=== PATIENT | female | born 1965 | race Caucasian/White ===

== ENCOUNTER → 2018-11-15 | Outpatient (CLI) | payer OTHER ==
[2018-11-15 09:11] LABS: Basophils # (auto) 0 uL; Eosinophils # (auto) 0.4 uL; Eosinophils % (auto) 8.5 % (0.0-7.0); Hematocrit 40.9 % (36.0-46.0); Hemoglobin 13.7 g/dL (12.2-16.2); Lymphocytes # (auto) 0.9 uL; Lymphocytes % (auto) 18.1 % (10.0-50.0); Mean Corpuscular Hemoglobin 28.4 pg (28.0-32.0); Mean Corpuscular Hgb Conc. 33.5 g/dL (32.0-36.0); Mean Corpuscular Volume 84.7 fL (80.0-100.0); Monocytes # (auto) 0.4 uL; Monocytes % (auto) 8.1 % (0.0-12.0); Neutrophils # (auto) 3.1 uL; Neutrophils % (auto) 64.3 % (37.0-80.0); Nucleated Red Blood Cells % 0.1 %; Platelet Count (auto) 294 10^3/uL (140-450); Red Blood Cells 4.83 10^6/uL (4.0-5.20); Red Cell Distribution Width 14.6 % (11.8-14.3); White Blood Cell 4.8 10^3/uL (4.4-10.8)
[2018-11-15 09:52] LABS: Potassium 3.7 mmol/L (3.5-5.1)
[2018-11-15 10:23] LABS: Albumin 3.5 g/dL (3.4-5.0); BUN/Creatinine Ratio 15.4; Bilirubin, Total 0.6 mg/dL (0.2-1.0); Calcium 8.9 mg/dL (8.5-10.1); Total Protein 7.4 g/dL (6.4-8.2)
[2018-11-15 14:41] LABS: Urine Bacteria MOD /hpf (None Seen); Urine Blood Negative /uL (Negative); Urine Hyaline Cast MOD /lpf (0 - 2); Urine Mucus FEW (None Seen); Urine Specific Gravity 1.027 (1.001-1.035); Urine WBC 26 /hpf (0 - 5)
== END | disposition home or self-care (01) ==
LOC: LAB 08:03
PROVIDERS: ATTEND Family Medicine
DX: E78.5 Hyperlipidemia, unspecified (principal); F33.9 Major depressive disorder, recurrent, unspecified; I10 Essential (primary) hypertension; E66.9 Obesity, unspecified; Z86.39 Personal history of other endocrine, nutritional and metabolic disease
CPT/HCPCS: 36415; 80053; 80061; 81001; 82306; 82607; 83036; 84443; 85025

== ENCOUNTER → 2019-03-02 | Outpatient (CLI) | payer OTHER | END | disposition home or self-care (01) | LOC: LAB 07:20 | PROVIDERS: ATTEND Family Medicine | DX: R94.6 Abnormal results of thyroid function studies (principal) | CPT/HCPCS: 36415; 84403; 84443; 84480 ==

== ENCOUNTER 2019-04-19 09:33 | Emergency (ER) | payer SELFPAY ==
[~2019-04-19] VITALS: Ht 172.7 cm; Wt 100.7 kg
[2019-04-19 10:31] LABS: Basophils # (auto) 0.1 uL; Basophils % (auto) 0.8 % (0.0-2.0); Eosinophils # (auto) 0.3 uL; Eosinophils % (auto) 4.2 % (0.0-7.0); Hematocrit 45.9 % (36.0-46.0); Hemoglobin 15.4 g/dL (12.2-16.2); Lymphocytes # (auto) 1.2 uL; Lymphocytes % (auto) 18.6 % (10.0-50.0); Mean Corpuscular Hemoglobin 28.6 pg (28.0-32.0); Mean Corpuscular Hgb Conc. 33.5 g/dL (32.0-36.0); Mean Corpuscular Volume 85.3 fL (80.0-100.0); Monocytes # (auto) 0.4 uL; Monocytes % (auto) 6.2 % (0.0-12.0); Neutrophils # (auto) 4.7 uL; Neutrophils % (auto) 70.2 % (37.0-80.0); Nucleated Red Blood Cells % 0.1 %; Platelet Count (auto) 340 10^3/uL (140-450); Red Blood Cells 5.39 10^6/uL (4.0-5.20); Red Cell Distribution Width 14.1 % (11.8-14.3); White Blood Cell 6.7 10^3/uL (4.4-10.8)
[2019-04-19 10:47] LABS: Albumin 4.3 g/dL (3.4-5.0); Calcium 9.5 mg/dL (8.5-10.1); Potassium 4.4 mmol/L (3.5-5.1)
[2019-04-19 10:50] LABS: Bilirubin, Total 0.7 mg/dL (0.2-1.0); Total Protein 8.1 g/dL (6.4-8.2)
[2019-04-19 12:46] LABS: Urine Bacteria NONE SEEN /hpf (None Seen); Urine Blood Negative /uL (Negative); Urine Mucus FEW (None Seen); Urine WBC 5 /hpf (0 - 5)
[2019-04-19 12:56] VITALS: BP 134/74
== END 2019-04-19 14:20 | disposition home or self-care (01) ==
LOC: ER 09:33
DX: S00.83XA Contusion of other part of head, initial encounter (principal); R55 Syncope and collapse; R00.2 Palpitations; N39.0 Urinary tract infection, site not specified; I12.9 Hypertensive chronic kidney disease with stage 1 through stage 4 chronic kidney disease, or unspecified chronic kidney disease; N18.3 Chronic kidney disease, stage 3 (moderate); E78.5 Hyperlipidemia, unspecified; Z90.49 Acquired absence of other specified parts of digestive tract; Z98.51 Tubal ligation status; X58.XXXA Exposure to other specified factors, initial encounter; Y93.89 Activity, other specified; Y99.8 Other external cause status; Y92.89 Other specified places as the place of occurrence of the external cause
CPT/HCPCS: 36415; 70486; 71046; 80053; 81001; 84443; 84484; 85025; 85379

== ENCOUNTER → 2019-05-31 | Outpatient (CLI) | payer OTHER | END | disposition home or self-care (01) | LOC: LAB 15:00 | PROVIDERS: ATTEND Obstetrics & Gynecology | DX: N84.1 Polyp of cervix uteri (principal) ==

== ENCOUNTER → 2019-08-31 | Outpatient (CLI) | payer OTHER | END | disposition home or self-care (01) | LOC: XYW 09:36 | PROVIDERS: ATTEND Internal Medicine | DX: R07.9 Chest pain, unspecified (principal) | CPT/HCPCS: 93306 ==

== ENCOUNTER → 2019-09-21 | Outpatient (CLI) | payer OTHER ==
[~2019-09-21] VITALS: Ht 172.7 cm; Wt 93.9 kg
[~2019-09-21] MED LIST: ADENOSINE 79 MG in GIVE UN-DILUTED 0 ML IV STA
== END | disposition home or self-care (01) ==
LOC: XY 07:06
PROVIDERS: ATTEND Internal Medicine
DX: R07.9 Chest pain, unspecified (principal); R55 Syncope and collapse; R00.2 Palpitations
CPT/HCPCS: 78452; 93017; A9500; J0153

== ENCOUNTER → 2019-11-27 | Outpatient (CLI) | payer OTHER ==
[2019-11-27 08:14] LABS: Basophils # (auto) 0 10 ^3/uL (0-0.2); Basophils % (auto) 1.2 % (0.0-2.0); Eosinophils # (auto) 0.2 10 ^3/uL (0-0.8); Hematocrit 43.6 % (36.0-46.0); Hemoglobin 14.3 g/dL (12.2-16.2); Lymphocytes # (auto) 0.9 10 ^3/uL (0.4-5.4); Lymphocytes % (auto) 23.9 % (10.0-50.0); Mean Corpuscular Hgb Conc. 32.8 g/dL (32.0-36.0); Mean Corpuscular Volume 88.5 fL (80.0-100.0); Monocytes # (auto) 0.3 10 ^3/uL (0-1.3); Monocytes % (auto) 8.2 % (0.0-12.0); Neutrophils # (auto) 2.4 10 ^3/uL (1.6-8.6); Neutrophils % (auto) 61.7 % (37.0-80.0); Platelet Count (auto) 295 10^3/uL (140-450); Red Blood Cells 4.92 10^6/uL (4.0-5.20); Red Cell Distribution Width 14.6 % (11.8-14.3)
[2019-11-27 08:24] LABS: Urine Bacteria NONE SEEN /hpf (None Seen); Urine Blood Negative /uL (Negative); Urine Hyaline Cast MANY /lpf (0 - 2); Urine Mucus FEW (None Seen); Urine Specific Gravity 1.028 (1.001-1.035); Urine WBC 7 /hpf (0 - 5)
[2019-11-27 11:09] LABS: BUN/Creatinine Ratio 15.7; Bilirubin, Total 0.6 mg/dL (0.2-1.0); Calcium 8.9 mg/dL (8.5-10.1); Potassium 4.2 mmol/L (3.5-5.1); Total Protein 7.7 g/dL (6.4-8.2)
== END | disposition home or self-care (01) ==
LOC: LAB 07:54
PROVIDERS: ATTEND Family Medicine
DX: I10 Essential (primary) hypertension (principal); E78.2 Mixed hyperlipidemia; R79.89 Other specified abnormal findings of blood chemistry; E55.9 Vitamin D deficiency, unspecified; R32 Unspecified urinary incontinence; E66.09 Other obesity due to excess calories; Z87.898 Personal history of other specified conditions; Z82.49 Family history of ischemic heart disease and other diseases of the circulatory system
CPT/HCPCS: 36415; 80053; 80061; 81001; 82306; 84443; 85025

== ENCOUNTER → 2019-12-21 | Outpatient (CLI) | payer OTHER ==
[~2019-12-21] VITALS: Ht 172.7 cm; Wt 93.1 kg
[~2019-12-21] MED LIST changes: -ADENOSINE 79 MG in GIVE UN-DILUTED 0 ML IV STA; +ALPR0.25 PO; +AML5T PO; +ATOR1TAB PO; +BUPR-40 PO; +HYDR-4924 PO; +OXYB10TA14 PO
[2019-12-21 08:55] LABS: Basophils # (auto) 0 10 ^3/uL (0-0.2); Basophils % (auto) 0.8 % (0.0-2.0); Eosinophils # (auto) 0.2 10 ^3/uL (0-0.8); Eosinophils % (auto) 4.9 % (0.0-7.0); Hematocrit 40.6 % (36.0-46.0); Hemoglobin 13.5 g/dL (12.2-16.2); Mean Corpuscular Hemoglobin 29.3 pg (28.0-32.0); Mean Corpuscular Hgb Conc. 33.2 g/dL (32.0-36.0); Monocytes # (auto) 0.4 10 ^3/uL (0-1.3); Monocytes % (auto) 7.8 % (0.0-12.0); Neutrophils % (auto) 64.5 % (37.0-80.0); Nucleated Red Blood Cells % 0.1 %; Platelet Count (auto) 291 10^3/uL (140-450); Red Blood Cells 4.62 10^6/uL (4.0-5.20); Red Cell Distribution Width 14.8 % (11.8-14.3); White Blood Cell 4.7 10^3/uL (4.4-10.8)
[2019-12-21 09:10] LABS: INR 1.02 (0.9-1.15); Partial Thromboplastin Time 25.1 sec (23.0-31.2)
[2019-12-21 09:13] LABS: Albumin 3.7 g/dL (3.4-5.0); Calcium 8.8 mg/dL (8.5-10.1)
[2019-12-21 09:16] LABS: BUN/Creatinine Ratio 18.8; Bilirubin, Total 0.4 mg/dL (0.2-1.0); Total Protein 7.2 g/dL (6.4-8.2)
== END | disposition home or self-care (01) ==
LOC: LAB 08:45
PROVIDERS: ATTEND Internal Medicine
DX: Z01.818 Encounter for other preprocedural examination (principal)
CPT/HCPCS: 36415; 80053; 85025; 85610; 85730

== ENCOUNTER 2019-12-27 06:56 | Inpatient (IN) | payer OTHER ==
[~2019-12-27] VITALS: Ht 172.7 cm; Wt 98.6 kg
[2019-12-27] MEDS ORDERED: ANGIOMAX 250 MG VIAL IV ONE (09:04)
[2019-12-27] MEDS ORDERED: SODIUM CHL 0.9% 50 ML ONE (09:04)
[2019-12-27] MEDS ORDERED: MIDAZOLAM HCL 1MG/1ML-2 ML VIAL ONE (09:04)
[2019-12-27] MEDS ORDERED: fentaNYL CITRATE 100 MCG/2 ML VL ONE (09:04)
[2019-12-27] MEDS ORDERED: NITROGLYCERIN 5MG/ML 10ML VIAL IV ONE (09:05)
[2019-12-27] MEDS ORDERED: HEPARIN SODIUM (PORCINE) 5000 UNITS/ML 1ML VIAL ONE (09:05)
[2019-12-27] MEDS ORDERED: VERAPAMIL 2.5MG/ML INJ 2ML VIAL IV ONE (09:05)
[2019-12-27] MEDS ORDERED: LIDOCAINE 2%HCL (LOCAL ANESTH.) INJ 20ML MDV ONE (09:11)
[2019-12-27] MEDS ORDERED: ASPirin 325 MG TAB ONE (09:50)
[2019-12-27] MEDS ORDERED: TICAGRELOR 90 MG TAB ONE (09:50)
--- NOTE | 2019-12-27 10:00 | NUR ---
Received pt. in [employer] post-op awake and alert with even and unlabored respirations in supine position. States feel "fine" with mild numbness and tingling to RIGHT fingers. RT wrist VASC band in place with no oozing or bleeding noted at visible puncture site. RT radial pulse is palpable. Moves all extremities freely, HOB elevated 30 degrees for comfort. IV infusing well into LEFT AC with Angiomax infusing IVPB via infusion pump; site benign. NAD noted. Instructed re: procedure outcome and plan of care; pt. verbalized understanding and is compliant.
[2019-12-27] MEDS ORDERED: NITROGLYCERIN 0.4 MG SL TAB SL PRN (10:15)
[2019-12-27] MEDS ORDERED: SODIUM CHLORIDE 0.9% 1,000 ML IV SCH (10:15)
[2019-12-27] MEDS ORDERED: MORPHINE SULF INJ 2 MG/ML SYRINGE 1ML IV PRN (10:15)
--- NOTE | 2019-12-27 10:17 | NUR ---
RT wrist VASC band intact with no noted bleeding at puncture site.
--- NOTE | 2019-12-27 10:31 | NUR ---
Continues to deny discomfort, watching TV at present, RIGHT wrist VASC band site unchanged. IV NS infusing @ 200 ml/hr; site benign.
--- NOTE | 2019-12-27 10:43 | NUR ---
SBAR report given to XIOMARA Calhoun.
--- NOTE | 2019-12-27 10:56 | NUR ---
Up to bathroom to void.
--- NOTE | 2019-12-27 11:02 | NUR ---
Pt. transferred to room 297-A via w/c in stable condition. RIGHT wrist VASC band in place and unchanged, states RT hand numbness and tingling is gone. NAD noted. Pt. endorsed to XIOMARA Calhoun.
--- NOTE | 2019-12-27 11:05 | NUR ---
Pt. received from [employer] [place] in stable condition. She is alert and oriented times four at this time. Vasc Band site is intact and she denies any chest pain or SOB.
--- NOTE | 2019-12-27 12:00 | NUR ---
Pt.'s Vasc Band was inserted syringe and 2mls of air were removed. No bleeding or bruising noted to site. Will reassess in 10 minutes.
--- NOTE | 2019-12-27 12:25 | NUR ---
Pt.'s Vasc Band was inserted syringe and 2mls of air were removed. No bleeding or bruising noted to site. Pt. states feeling well and denies SOB or Chest Pain. Will reassess in 15 minutes.
--- NOTE | 2019-12-27 12:40 | NUR ---
Pt.'s Vasc Band was inserted syringe and 2mls of air were removed. No bleeding or bruising noted to site. Will reassess in 15 minute.
--- NOTE | 2019-12-27 12:50 | NUR ---
Pt.'s Vasc Band was inserted syringe and no air came out. Will reassess in 15 minutes and remove Vasc Band if no air comes out.
--- NOTE | 2019-12-27 13:05 | NUR ---
Pt.'s Vasc Band was accessed with syringe again and no air came out. Vasc Band was removed and gauze was applied over punture site, tegaderm over gauze. Pt. tolerated well. no bleeding noted.
[2019-12-27] MEDS ORDERED: BUPR150T6 PO (13:07)
[2019-12-27] MEDS ORDERED: BUPR300T28 PO (13:07)
[2019-12-27] MEDS ORDERED: CHOL100029 PO (13:11)
[2019-12-27] MEDS ORDERED: ASPI-498 PO (13:11)
[2019-12-27 13:57] VITALS: BP 144/71
[2019-12-27] MEDS: SODIUM CHLOR 0.9% PF (SALINE LOCK) 10ML VIAL/SYR IV SCH ×2 (14:00→22:19)
[2019-12-27] MEDS ORDERED: ATOR80TA (16:32)
[2019-12-27] MEDS: IBUPROFEN 600 MG TAB PO PRN (16:48)
[2019-12-27 17:43] VITALS: BP 156/88
--- NOTE | 2019-12-27 19:35 | NUR ---
Opening Shift Note Assumed care of patient, awake and alert. No S/S of distress/SOB or pain. Safety measures in place, bed in lowest locked position, bed rails raised x2, call light within reach. Instructed on POC and to call for assist PRN, will continue to monitor for changes Q1hr and PRN.
[2019-12-27 22:00] VITALS: BP 142/75
[2019-12-27] MEDS: PANTOPRAZOLE 40 MG TAB PO SCH (22:19)
[2019-12-27] MEDS: TICAGRELOR 90 MG TAB PO SCH (22:19)
[2019-12-28 04:58] VITALS: BP 155/91
[2019-12-28] MEDS: SODIUM CHLOR 0.9% PF (SALINE LOCK) 10ML VIAL/SYR IV SCH ×2 (05:41→14:00)
[2019-12-28] MEDS: IBUPROFEN 600 MG TAB PO PRN (06:00)
[2019-12-28 09:00] VITALS: BP 136/81
[2019-12-28] MEDS: PANTOPRAZOLE 40 MG TAB PO SCH (09:11)
[2019-12-28] MEDS: TICAGRELOR 90 MG TAB PO SCH (09:11)
[2019-12-28] MEDS ORDERED: ASPirin-EC 81 mg tab PO SCH (10:00)
[2019-12-28 13:00] VITALS: BP 138/76
--- NOTE | 2019-12-28 16:37 | NUR ---
Discharge Went over discharge paperwork with patient; answered all questions. Follow up doctor appt made with Dr. Arce. Prescription was taken to [facility]. They said they are out of the Brilinta and they will deliver it to her home tomorrow. They will also deliver the aspirin as the patient already has aspirin at home to take. Removed IV intact, no problems. Removed ID band. Removed hall monitor and sent to ICU per hospital protocol. Patient waiting for ride from family and will leave with all personal belongings in private vehicle.
== END 2019-12-28 16:55 | disposition home or self-care (01) | DRG 247 ==
LOC: CATH 06:56 → TELE-WESTW 11:47
PROVIDERS: ADMIT Internal Medicine; ATTEND Internal Medicine
PROC: 027034Z Dilation of Coronary Artery, One Artery with Drug-eluting Intraluminal Device, Percutaneous Approach (ICD-10-PCS; principal; 2019-12-27)
PROC: 4A023N7 Measurement of Cardiac Sampling and Pressure, Left Heart, Percutaneous Approach (ICD-10-PCS; 2019-12-27)
PROC: B211YZZ Fluoroscopy of Multiple Coronary Arteries using Other Contrast (ICD-10-PCS; 2019-12-27)
PROC: B215YZZ Fluoroscopy of Left Heart using Other Contrast (ICD-10-PCS; 2019-12-27)
PROC: 4A033BC Measurement of Arterial Pressure, Coronary, Percutaneous Approach (ICD-10-PCS; 2019-12-27)
DX: I25.10 Atherosclerotic heart disease of native coronary artery without angina pectoris (principal); I10 Essential (primary) hypertension; E78.5 Hyperlipidemia, unspecified; E66.9 Obesity, unspecified; R55 Syncope and collapse; Z20.828 Contact with and (suspected) exposure to other viral communicable diseases; R00.2 Palpitations; I25.9 Chronic ischemic heart disease, unspecified; Z68.33 Body mass index [BMI] 33.0-33.9, adult; Z82.49 Family history of ischemic heart disease and other diseases of the circulatory system
CPT/HCPCS: 36415; 82565; 92928; 93458; 93571; 99152; C1874; C1887; G0378; J2250; J3490

== ENCOUNTER → 2020-01-11 | Outpatient (CLI) | payer OTHER ==
[~2020-01-11] MED LIST changes: +ASPI-498 PO; +ATOR80TA; -BUPR-40 PO; +BUPR150T6 PO; +BUPR300T28 PO; +CHOL100029 PO
== END | disposition home or self-care (01) ==
LOC: LAB 17:33
PROVIDERS: ATTEND Urology
DX: N39.0 Urinary tract infection, site not specified (principal)
CPT/HCPCS: 87086

== ENCOUNTER → 2020-04-12 | Outpatient (CLI) | payer OTHER ==
[2020-04-12 14:37] LABS: Basophils # (auto) 0 10 ^3/uL (0-0.2); Basophils % (auto) 0.8 % (0.0-2.0); Eosinophils # (auto) 0.3 10 ^3/uL (0-0.8); Eosinophils % (auto) 4.6 % (0.0-7.0); Hematocrit 40.2 % (36.0-46.0); Hemoglobin 13.6 g/dL (12.2-16.2); Lymphocytes # (auto) 1.1 10 ^3/uL (0.4-5.4); Lymphocytes % (auto) 18.2 % (10.0-50.0); Mean Corpuscular Hemoglobin 30.2 pg (28.0-32.0); Mean Corpuscular Hgb Conc. 33.9 g/dL (32.0-36.0); Monocytes # (auto) 0.5 10 ^3/uL (0-1.3); Monocytes % (auto) 9.1 % (0.0-12.0); Neutrophils # (auto) 3.9 10 ^3/uL (1.6-8.6); Neutrophils % (auto) 67.3 % (37.0-80.0); Nucleated Red Blood Cells % 0.1 %; Platelet Count (auto) 326 10^3/uL (140-450); Red Blood Cells 4.52 10^6/uL (4.0-5.20); Red Cell Distribution Width 13.7 % (11.8-14.3); White Blood Cell 5.8 10^3/uL (4.4-10.8)
== END | disposition home or self-care (01) ==
LOC: LAB 14:26
PROVIDERS: ATTEND Nurse Practitioner Acute Care
DX: I10 Essential (primary) hypertension (principal); I25.10 Atherosclerotic heart disease of native coronary artery without angina pectoris
CPT/HCPCS: 36415; 85025

== ENCOUNTER → 2020-11-05 | Outpatient (CLI) | payer OTHER ==
[~2020-11-05] MED LIST changes: +ATOR-47 PO; -ATOR1TAB PO; +BUPR150T18 PO; -BUPR150T6 PO
[2020-11-05 08:37] LABS: Basophils # (auto) 0 10 ^3/uL (0-0.2); Basophils % (auto) 0.6 % (0.0-2.0); Eosinophils # (auto) 0.3 10 ^3/uL (0-0.8); Eosinophils % (auto) 6.1 % (0.0-7.0); Hematocrit 40.2 % (36.0-46.0); Hemoglobin 13.5 g/dL (12.2-16.2); Lymphocytes # (auto) 1.2 10 ^3/uL (0.4-5.4); Lymphocytes % (auto) 22.5 % (10.0-50.0); Mean Corpuscular Hemoglobin 28.9 pg (28.0-32.0); Mean Corpuscular Hgb Conc. 33.4 g/dL (32.0-36.0); Mean Corpuscular Volume 86.3 fL (80.0-100.0); Monocytes # (auto) 0.4 10 ^3/uL (0-1.3); Monocytes % (auto) 8.2 % (0.0-12.0); Neutrophils # (auto) 3.3 10 ^3/uL (1.6-8.6); Neutrophils % (auto) 62.6 % (37.0-80.0); Red Blood Cells 4.66 10^6/uL (4.0-5.20); Red Cell Distribution Width 14.7 % (11.8-14.3); White Blood Cell 5.2 10^3/uL (4.4-10.8)
[2020-11-05 08:41] LABS: Urine Bacteria NONE SEEN /hpf (None Seen); Urine Blood Negative /uL (Negative); Urine Mucus FEW (None Seen); Urine WBC 10 /hpf (0 - 5)
[2020-11-05 08:56] LABS: Albumin 3.4 g/dL (3.4-5.0); Potassium 3.9 mmol/L (3.5-5.1)
[2020-11-05 09:03] LABS: BUN/Creatinine Ratio 19.2; Bilirubin, Total 0.5 mg/dL (0.2-1.0); Total Protein 7.2 g/dL (6.4-8.2)
== END | disposition home or self-care (01) ==
LOC: LAB 07:29
PROVIDERS: ATTEND Family Medicine
DX: I10 Essential (primary) hypertension (principal); E78.2 Mixed hyperlipidemia; I25.10 Atherosclerotic heart disease of native coronary artery without angina pectoris; M54.5 Low back pain; F33.9 Major depressive disorder, recurrent, unspecified; Z95.5 Presence of coronary angioplasty implant and graft
CPT/HCPCS: 36415; 80053; 80061; 81001; 82306; 82607; 84443; 85025

== ENCOUNTER 2021-03-03 10:06 | Inpatient (IN) | payer OTHER ==
[~2021-03-03] VITALS: Ht 167.6 cm; Wt 92.6 kg
[2021-03-03] MEDS ORDERED: SODIUM CHLORIDE 0.9% 500 ML IV ONE (10:30)
[2021-03-03 10:53] LABS: Basophils # (auto) 0 10 ^3/uL (0-0.2); Basophils % (auto) 0.7 % (0.0-2.0); Eosinophils # (auto) 0.1 10 ^3/uL (0-0.8); Eosinophils % (auto) 1.4 % (0.0-7.0); Hematocrit 25.8 % (36.0-46.0); Hemoglobin 8.6 g/dL (12.2-16.2); Lymphocytes # (auto) 1.6 10 ^3/uL (0.4-5.4); Lymphocytes % (auto) 24.9 % (10.0-50.0); Mean Corpuscular Hemoglobin 28.8 pg (28.0-32.0); Mean Corpuscular Hgb Conc. 33.4 g/dL (32.0-36.0); Mean Corpuscular Volume 86.5 fL (80.0-100.0); Monocytes # (auto) 0.3 10 ^3/uL (0-1.3); Monocytes % (auto) 4.4 % (0.0-12.0); Neutrophils # (auto) 4.5 10 ^3/uL (1.6-8.6); Neutrophils % (auto) 68.6 % (37.0-80.0); Nucleated Red Blood Cells % 0.1 %; Red Blood Cells 2.99 10^6/uL (4.0-5.20); Red Cell Distribution Width 13.8 % (11.8-14.3); White Blood Cell 6.6 10^3/uL (4.4-10.8)
[2021-03-03 11:33] LABS: Albumin 3.2 g/dL (3.4-5.0); Potassium 3.7 mmol/L (3.5-5.1)
[2021-03-03 11:46] LABS: BUN/Creatinine Ratio 42.2; Bilirubin, Total 0.3 mg/dL (0.2-1.0); Magnesium 2.8 mg/dL (1.6-2.6); Total Protein 6.3 g/dL (6.4-8.2)
[2021-03-03] MEDS ORDERED: MORPHINE SULFATE INJECTION 2 MG/ML SYRG IV PRN ×3 (16:30→21:45)
[2021-03-03] MEDS ORDERED: NITROGLYCERIN 0.4 MG SL TAB SL PRN ×2 (16:30→21:45)
[2021-03-03] MEDS ORDERED: LACTULOSE 20Gm/30ML SOLN PO PRN (17:15)
[2021-03-03 20:00] LABS: Urine Bacteria NONE SEEN /hpf (None Seen); Urine Blood Negative /uL (Negative); Urine Mucus FEW (None Seen); Urine Specific Gravity 1.024 (1.001-1.035); Urine WBC 13 /hpf (0 - 5)
[2021-03-03] MEDS ORDERED: hydrALAZINE HCL 20 MG/ML VL IV PRN (21:45)
[2021-03-03] MEDS ORDERED: DOCUSATE SOD 100 MG CAP PO PRN (21:45)
[2021-03-03] MEDS ORDERED: ONDANSETRON HCL 4 MG/2 ML VIAL IV PRN (21:45)
[2021-03-03] MEDS ORDERED: METOPROLOL SUCCINATE XL 50 MG TAB PO ONE (21:45)
[2021-03-03] MEDS ORDERED: LORazepam 0.5 MG TAB PO PRN (21:45)
[2021-03-03] MEDS ORDERED: ALUM & MAG HYDROX-SIMETH LIQ(MAALOX) 30 ML PO PRN (21:45)
[2021-03-03] MEDS ORDERED: hydrOXYzine HCL 10 MG TAB PO PRN (21:45)
[2021-03-03] MEDS ORDERED: HYDROcodone-ACET 5/325MG TAB PO PRN (21:45)
[2021-03-03] MEDS ORDERED: PANTOPRAZOLE 40 MG/10 ML VIAL INJ IV ONE (22:00)
[2021-03-03 23:38] LABS: Alcohol, Urine < 3.0 mg/dL (0-10); Amphetamine Screen, Urine NEGATIVE (NEGATIVE); Barbiturate Scree,Urine NEGATIVE (NEGATIVE); Benzodiazephine Screen, Urine NEGATIVE (NEGATIVE); Cannabinoid Screen, Urine NEGATIVE (NEGATIVE); Cocaine Screen, Urine NEGATIVE (NEGATIVE); Opiate Scree,Urine NEGATIVE (NEGATIVE); Phencyclidine Screen, Urine NEGATIVE (NEGATIVE)
[2021-03-03] MEDS: OXYBUTYNIN CHL 5 MG TAB PO SCH (23:52)
[2021-03-03] MEDS: ATORVASTATIN 20 MG TAB PO SCH (23:52)
[2021-03-04] VITALS (7 sets, daily range): BP systolic 114–155; BP diastolic 64–79
[2021-03-04] MEDS: SODIUM CHLORIDE 0.9% 1,000 ML IV SCH ×2 (00:02→11:20)
[2021-03-04] MEDS: buPROPion HCL 75 MG TAB PO SCH ×2 (07:00→19:00)
[2021-03-04 07:25] LABS: Basophils # (auto) 0 10 ^3/uL (0-0.2); Basophils % (auto) 0.7 % (0.0-2.0); Lymphocytes # (auto) 2.1 10 ^3/uL (0.4-5.4); Mean Corpuscular Hemoglobin 29.6 pg (28.0-32.0); Monocytes # (auto) 0.5 10 ^3/uL (0-1.3)
[2021-03-04 07:27] LABS: Eosinophils # (auto) 0.1 10 ^3/uL (0-0.8); Eosinophils % (auto) 0.7 % (0.0-7.0); Hematocrit 19.6 % (36.0-46.0); Lymphocytes % (auto) 29.2 % (10.0-50.0); Mean Corpuscular Hgb Conc. 33.8 g/dL (32.0-36.0); Mean Corpuscular Volume 87.4 fL (80.0-100.0); Monocytes % (auto) 6.4 % (0.0-12.0); Neutrophils # (auto) 4.6 10 ^3/uL (1.6-8.6); Nucleated Red Blood Cells % 0.2 %; Red Blood Cells 2.24 10^6/uL (4.0-5.20); Red Cell Distribution Width 13.8 % (11.8-14.3); White Blood Cell 7.2 10^3/uL (4.4-10.8)
[2021-03-04 07:34] LABS: Hemoglobin 6.6 g/dL (12.2-16.2)
[2021-03-04] MEDS: ACETAMINOPHEN 325 MG TAB PO PRN ×2 (07:45→14:02)
[2021-03-04 07:59] LABS: INR 1.1 (0.9-1.15); Partial Thromboplastin Time 20.9 sec (23.6-33.0)
[2021-03-04 08:19] LABS: Potassium 3.6 mmol/L (3.5-5.1)
[2021-03-04 08:29] LABS: BUN/Creatinine Ratio 39.5; Bilirubin, Total 0.4 mg/dL (0.2-1.0); Calcium 7.9 mg/dL (8.5-10.1); Magnesium 3.3 mg/dL (1.6-2.6); Phosphorus 2.8 mg/dL (2.5-4.90); Total Protein 5.7 g/dL (6.4-8.2); Uric Acid 5.3 mg/dL (2.6-6.0)
[2021-03-04] MEDS: cefTRIAXone 1GM/50ML D5W 50 ML IV SCH (09:23)
[2021-03-04] MEDS: PANTOPRAZOLE 40 MG/10 ML VIAL INJ IV SCH ×2 (09:24→22:18)
[2021-03-04] MEDS: OXYBUTYNIN CHL 5 MG TAB PO SCH ×2 (09:25→22:18)
[2021-03-04] MEDS ORDERED: SOLI5SUS PO (09:32)
[2021-03-04] MEDS ORDERED: TICA90TA PO (09:32)
[2021-03-04] MEDS ORDERED: METOPROLOL SUCCINATE XL 50 MG TAB PO SCH (10:00)
[2021-03-04 12:01] LABS: Hematocrit 18.7 % (36.0-46.0)
[2021-03-04 12:11] LABS: Hemoglobin 6.4 g/dL (12.2-16.2)
[2021-03-04] MEDS: ATORVASTATIN 20 MG TAB PO SCH (22:18)
[2021-03-04 22:26] LABS: Hematocrit 25.9 % (36.0-46.0); Hemoglobin 8.7 g/dL (12.2-16.2)
[2021-03-05 05:00] VITALS: BP 123/72
[2021-03-05] MEDS: SODIUM CHLORIDE 0.9% 1,000 ML IV SCH ×2 (05:42→13:27)
[2021-03-05] MEDS: buPROPion HCL 75 MG TAB PO SCH ×3 (06:34→18:35)
[2021-03-05 07:00] LABS: Basophils # (auto) 0 10 ^3/uL (0-0.2); Monocytes # (auto) 0.4 10 ^3/uL (0-1.3); White Blood Cell 5.9 10^3/uL (4.4-10.8)
[2021-03-05 07:03] LABS: Basophils % (auto) 0.7 % (0.0-2.0); Eosinophils # (auto) 0.2 10 ^3/uL (0-0.8); Eosinophils % (auto) 2.6 % (0.0-7.0); Hematocrit 23.2 % (36.0-46.0); Hemoglobin 8.1 g/dL (12.2-16.2); Lymphocytes # (auto) 1.6 10 ^3/uL (0.4-5.4); Lymphocytes % (auto) 26.5 % (10.0-50.0); Mean Corpuscular Hemoglobin 30.2 pg (28.0-32.0); Mean Corpuscular Hgb Conc. 34.8 g/dL (32.0-36.0); Mean Corpuscular Volume 86.9 fL (80.0-100.0); Monocytes % (auto) 6.7 % (0.0-12.0); Neutrophils # (auto) 3.7 10 ^3/uL (1.6-8.6); Neutrophils % (auto) 63.5 % (37.0-80.0); Nucleated Red Blood Cells % 0.1 %; Red Blood Cells 2.68 10^6/uL (4.0-5.20); Red Cell Distribution Width 14.4 % (11.8-14.3)
[2021-03-05 07:08] LABS: Potassium 3.6 mmol/L (3.5-5.1)
[2021-03-05 07:17] LABS: BUN/Creatinine Ratio 21.7; Calcium 7.8 mg/dL (8.5-10.1); Magnesium 3.2 mg/dL (1.6-2.6)
[2021-03-05] MEDS: cefTRIAXone 1GM/50ML D5W 50 ML IV SCH (08:49)
[2021-03-05] MEDS: ACETAMINOPHEN 325 MG TAB PO PRN ×3 (08:50→22:08)
[2021-03-05] MEDS: OXYBUTYNIN CHL 5 MG TAB PO SCH ×2 (08:50→22:02)
[2021-03-05] MEDS: PANTOPRAZOLE 40 MG/10 ML VIAL INJ IV SCH ×2 (08:50→22:03)
[2021-03-05 12:42] VITALS: BP 123/69
[2021-03-05 16:42] VITALS: BP 124/65
[2021-03-05 20:00] VITALS: BP 125/67
[2021-03-05 22:00] VITALS: BP 125/67
[2021-03-05] MEDS: ATORVASTATIN 20 MG TAB PO SCH (22:03)
[2021-03-05 23:48] LABS: Hematocrit 25.9 % (36.0-46.0); Hemoglobin 8.7 g/dL (12.2-16.2)
[2021-03-06] MEDS: SODIUM CHLORIDE 0.9% 1,000 ML IV SCH
[2021-03-06] MEDS ORDERED: dilTIAZem 25 MG/5 ML VIAL IV ONE (00:45)
[2021-03-06 05:00] VITALS: BP 95/60
[2021-03-06] MEDS: buPROPion HCL 75 MG TAB PO SCH (06:27)
[2021-03-06 06:31] LABS: Hemoglobin 8.1 g/dL (12.2-16.2)
[2021-03-06 06:34] LABS: Hematocrit 24.7 % (36.0-46.0)
[2021-03-06 06:49] LABS: BUN/Creatinine Ratio 12.5; Calcium 7.9 mg/dL (8.5-10.1); Potassium 3.5 mmol/L (3.5-5.1)
[2021-03-06 08:31] VITALS: BP 113/61
[2021-03-06] MEDS: ACETAMINOPHEN 325 MG TAB PO PRN (08:38)
[2021-03-06] MEDS: OXYBUTYNIN CHL 5 MG TAB PO SCH (08:38)
[2021-03-06] MEDS: PANTOPRAZOLE 40 MG/10 ML VIAL INJ IV SCH (08:38)
[2021-03-06 11:01] VITALS: BP 113/69
[2021-03-06] MEDS ORDERED: PANT40TA2 PO (14:39)
[2021-03-06 16:16] VITALS: BP 113/60
== END 2021-03-06 17:18 | disposition home or self-care (01) | DRG 812 ==
LOC: ER 10:06 → TELE 16:03 → TELE-WESTW 03-04 20:39
PROVIDERS: ADMIT Hospitalist; ATTEND Internal Medicine
PROC: 30233N1 Transfusion of Nonautologous Red Blood Cells into Peripheral Vein, Percutaneous Approach (ICD-10-PCS; principal; 2021-03-04)
DX: D64.9 Anemia, unspecified (principal); K59.00 Constipation, unspecified; E66.9 Obesity, unspecified; F32.9 Major depressive disorder, single episode, unspecified; N32.81 Overactive bladder; E78.5 Hyperlipidemia, unspecified; I25.10 Atherosclerotic heart disease of native coronary artery without angina pectoris; F32.A Depression, unspecified; R00.0 Tachycardia, unspecified; F41.9 Anxiety disorder, unspecified; Z20.822 Contact with and (suspected) exposure to COVID-19; I10 Essential (primary) hypertension; Z80.0 Family history of malignant neoplasm of digestive organs; Z82.49 Family history of ischemic heart disease and other diseases of the circulatory system; Z95.5 Presence of coronary angioplasty implant and graft; Z90.49 Acquired absence of other specified parts of digestive tract; Z98.51 Tubal ligation status; Z68.32 Body mass index [BMI] 32.0-32.9, adult
CPT/HCPCS: 36415; 71045; 74177; 76830; 76856; 80048; 80053; 80307; 81001; 82270; 82306; 83036; 83735; 83880; 84100; 84443; 84484; 84550; 85014; 85018; 85025; 85379; 85610; 85730; 86850; 86900; 86901; 86920; 87040; 87086; 87426; 93005; 96360; C9113; G0378; J0696

== ENCOUNTER → 2021-05-08 | Day surgery (SDC) | payer OTHER ==
[2021-05-06 10:34] LABS: Basophils # (auto) 0.1 10 ^3/uL (0-0.2); Basophils % (auto) 0.7 % (0.0-2.0); Eosinophils # (auto) 0.1 10 ^3/uL (0-0.8); Eosinophils % (auto) 1.9 % (0.0-7.0); Hematocrit 41.9 % (36.0-46.0); Hemoglobin 13.8 g/dL (12.2-16.2); Lymphocytes # (auto) 1.2 10 ^3/uL (0.4-5.4); Lymphocytes % (auto) 15.7 % (10.0-50.0); Mean Corpuscular Hgb Conc. 32.9 g/dL (32.0-36.0); Mean Corpuscular Volume 88.2 fL (80.0-100.0); Monocytes # (auto) 0.6 10 ^3/uL (0-1.3); Monocytes % (auto) 8.1 % (0.0-12.0); Neutrophils # (auto) 5.7 10 ^3/uL (1.6-8.6); Neutrophils % (auto) 73.6 % (37.0-80.0); Red Blood Cells 4.75 10^6/uL (4.0-5.20); Red Cell Distribution Width 15.4 % (11.8-14.3); White Blood Cell 7.7 10^3/uL (4.4-10.8)
[2021-05-06 12:12] LABS: Potassium 4.7 mmol/L (3.5-5.1)
[2021-05-06 12:20] LABS: Albumin 3.8 g/dL (3.4-5.0); BUN/Creatinine Ratio 26.7; Bilirubin, Total 0.7 mg/dL (0.2-1.0); Calcium 9.4 mg/dL (8.5-10.1); Total Protein 7.4 g/dL (6.4-8.2)
[~2021-05-08] VITALS: Ht 172.7 cm; Wt 88.0 kg
[~2021-05-08] MED LIST changes: -ASPI-498 PO; -ATOR80TA; -BUPR150T18 PO; -BUPR300T28 PO; +FERR-7 PO; +FOLI1TAB6 PO; -HYDR-4924 PO; +LIDOCAINE VISCOUS 2% 15ML UD ONE; -OXYB10TA14 PO; +PANT40TA2 PO; +SODIUM CHLORIDE LOCK 10 ML ONE; +SOLI5SUS PO; +diphenhdrAMINE HCL 50 MG/1 ML VL ONE
[2021-05-08] MEDS: MIDAZOLAM HCL 5 MG/ML-1ML VIAL ONE ×4 (09:49→10:06)
[2021-05-08] MEDS: fentaNYL CITRATE 100 MCG/2 ML VL ONE ×4 (09:49→10:06)
[2021-05-08 11:00] VITALS: BP 114/67
== END | disposition home or self-care (01) ==
LOC: GI 09:05
PROVIDERS: ATTEND Internal Medicine Gastroenterology
DX: D64.9 Anemia, unspecified (principal); K64.8 Other hemorrhoids; K29.50 Unspecified chronic gastritis without bleeding; K44.9 Diaphragmatic hernia without obstruction or gangrene; K31.5 Obstruction of duodenum; I10 Essential (primary) hypertension; E78.5 Hyperlipidemia, unspecified; F41.9 Anxiety disorder, unspecified; F32.9 Major depressive disorder, single episode, unspecified; Z95.5 Presence of coronary angioplasty implant and graft; Z98.51 Tubal ligation status; Z86.2 Personal history of diseases of the blood and blood-forming organs and certain disorders involving the immune mechanism; Z82.49 Family history of ischemic heart disease and other diseases of the circulatory system; Z83.511 Family history of glaucoma; Z90.49 Acquired absence of other specified parts of digestive tract; Z98.891 History of uterine scar from previous surgery
CPT/HCPCS: 36415; 43239; 45378; 80053; 85025; 88305; 88342; J1200; J2250; J3010; J7030; U0003; 99152; 99153

== ENCOUNTER → 2021-08-22 | Outpatient (CLI) | payer OTHER ==
[~2021-08-22] MED LIST changes: -LIDOCAINE VISCOUS 2% 15ML UD ONE; -SODIUM CHLORIDE LOCK 10 ML ONE; -diphenhdrAMINE HCL 50 MG/1 ML VL ONE
[2021-08-22 07:37] LABS: Basophils # (auto) 0.1 10 ^3/uL (0-0.2); Eosinophils # (auto) 0.3 10 ^3/uL (0-0.8); Eosinophils % (auto) 5.9 % (0.0-7.0); Hematocrit 41.4 % (36.0-46.0); Hemoglobin 13.8 g/dL (12.2-16.2); Lymphocytes # (auto) 1.3 10 ^3/uL (0.4-5.4); Lymphocytes % (auto) 27.5 % (10.0-50.0); Mean Corpuscular Hemoglobin 30.3 pg (28.0-32.0); Mean Corpuscular Hgb Conc. 33.2 g/dL (32.0-36.0); Monocytes # (auto) 0.4 10 ^3/uL (0-1.3); Monocytes % (auto) 8.6 % (0.0-12.0); Neutrophils # (auto) 2.8 10 ^3/uL (1.6-8.6); Nucleated Red Blood Cells % 0.1 %; Red Blood Cells 4.55 10^6/uL (4.0-5.20); Red Cell Distribution Width 15.8 % (11.8-14.3); White Blood Cell 4.9 10^3/uL (4.4-10.8)
[2021-08-22 08:24] LABS: Albumin 3.6 g/dL (3.4-5.0); Calcium 9.3 mg/dL (8.5-10.1); Potassium 4.1 mmol/L (3.5-5.1)
[2021-08-22 08:28] LABS: BUN/Creatinine Ratio 20.9; Total Protein 7.4 g/dL (6.4-8.2)
== END | disposition home or self-care (01) ==
LOC: LAB 07:27
PROVIDERS: ATTEND Internal Medicine
DX: I10 Essential (primary) hypertension (principal); E78.5 Hyperlipidemia, unspecified
CPT/HCPCS: 36415; 80053; 80061; 85025

== ENCOUNTER → 2021-11-06 | Outpatient (CLI) | payer OTHER | END | disposition home or self-care (01) | LOC: XYW 07:45 | PROVIDERS: ATTEND Internal Medicine | DX: I35.0 Nonrheumatic aortic (valve) stenosis (principal); I25.10 Atherosclerotic heart disease of native coronary artery without angina pectoris | CPT/HCPCS: 93306 ==

== ENCOUNTER → 2021-12-23 | Outpatient (CLI) | payer OTHER ==
[~2021-12-23] VITALS: Ht 172.7 cm; Wt 93.0 kg
[~2021-12-23] MED LIST changes: +ADENOSINE 78 MG in GIVE UN-DILUTED 0 ML IV STA
[2021-12-23 10:55] VITALS: BP 144/73
== END | disposition home or self-care (01) ==
LOC: XYW 08:32
PROVIDERS: ATTEND Internal Medicine
DX: I10 Essential (primary) hypertension (principal); E78.2 Mixed hyperlipidemia; I25.84 Coronary atherosclerosis due to calcified coronary lesion; Z82.49 Family history of ischemic heart disease and other diseases of the circulatory system
CPT/HCPCS: 78452; 93017; A9500; J0153

== ENCOUNTER → 2021-12-24 | Outpatient (CLI) | payer OTHER ==
[~2021-12-24] MED LIST changes: -ADENOSINE 78 MG in GIVE UN-DILUTED 0 ML IV STA
[2021-12-24 07:29] LABS: Basophils # (auto) 0 10 ^3/uL (0-0.2); Basophils % (auto) 0.7 % (0.0-2.0); Eosinophils # (auto) 0.2 10 ^3/uL (0-0.8); Eosinophils % (auto) 3.9 % (0.0-7.0); Hematocrit 44.8 % (36.0-46.0); Hemoglobin 14.3 g/dL (12.2-16.2); Lymphocytes # (auto) 1.3 10 ^3/uL (0.4-5.4); Lymphocytes % (auto) 23.6 % (10.0-50.0); Mean Corpuscular Hemoglobin 29.6 pg (28.0-32.0); Mean Corpuscular Volume 92.4 fL (80.0-100.0); Monocytes # (auto) 0.5 10 ^3/uL (0-1.3); Monocytes % (auto) 8.3 % (0.0-12.0); Neutrophils # (auto) 3.5 10 ^3/uL (1.6-8.6); Neutrophils % (auto) 63.5 % (37.0-80.0); Nucleated Red Blood Cells % 0.1 %; Red Blood Cells 4.85 10^6/uL (4.0-5.20); Red Cell Distribution Width 13.3 % (11.8-14.3); White Blood Cell 5.6 10^3/uL (4.4-10.8)
[2021-12-24 08:22] LABS: Albumin 3.7 g/dL (3.4-5.0); Calcium 9.2 mg/dL (8.5-10.1); Potassium 4.4 mmol/L (3.5-5.1)
[2021-12-24 08:26] LABS: BUN/Creatinine Ratio 18.3; Bilirubin, Total 0.7 mg/dL (0.2-1.0); CRP High Sensitivity 0.3 mg/dL (< 0.3); Total Protein 7.2 g/dL (6.4-8.2)
[2021-12-25 07:07] LABS: Immunoglobulin G, Serum 1224 mg/dL (586-1602)
== END | disposition home or self-care (01) ==
LOC: LAB 06:50
PROVIDERS: ATTEND Student in an Organized Health Care Education/Training Program
DX: K90.49 Malabsorption due to intolerance, not elsewhere classified (principal); K12.1 Other forms of stomatitis
CPT/HCPCS: 36415; 80053; 82784; 85025; 85652; 86038; 86141

== ENCOUNTER → 2022-05-18 | Outpatient (CLI) | payer OTHER ==
[2022-05-18 14:06] LABS: Urine Amorphous Crystal FEW /hpf (None Seen); Urine Bacteria NONE SEEN /hpf (None Seen); Urine Blood Negative /uL (Negative); Urine Mucus FEW (None Seen); Urine Specific Gravity 1.022 (1.001-1.035); Urine WBC 10 /hpf (0 - 5)
== END | disposition home or self-care (01) ==
LOC: LAB 13:49
PROVIDERS: ATTEND Urology
DX: N39.0 Urinary tract infection, site not specified (principal)
CPT/HCPCS: 81001; 87086

== ENCOUNTER → 2023-01-27 | Outpatient (CLI) | payer OTHER ==
[~2023-01-27] MED LIST changes: +FOLI-119 PO; -FOLI1TAB6 PO
== END | disposition home or self-care (01) ==
LOC: LAB 10:19
PROVIDERS: ATTEND Student in an Organized Health Care Education/Training Program
DX: Z12.11 Encounter for screening for malignant neoplasm of colon (principal); E78.5 Hyperlipidemia, unspecified; I10 Essential (primary) hypertension
CPT/HCPCS: 82274

== ENCOUNTER → 2023-09-20 | Outpatient (CLI) | payer MEDICAID | END | disposition home or self-care (01) | LOC: XYW 12:32 | PROVIDERS: ATTEND Internal Medicine | DX: I07.1 Rheumatic tricuspid insufficiency (principal); R00.2 Palpitations; I25.10 Atherosclerotic heart disease of native coronary artery without angina pectoris | CPT/HCPCS: 93306 ==

== ENCOUNTER → 2023-10-27 | Outpatient (CLI) | payer MEDICAID ==
[~2023-10-27] VITALS: Ht 172.7 cm; Wt 101.6 kg
== END | disposition home or self-care (01) ==
LOC: XY 08:30
PROVIDERS: ATTEND Internal Medicine
DX: R00.2 Palpitations (principal)
CPT/HCPCS: 78452; 93017; A9500

== ENCOUNTER → 2024-03-07 | Outpatient (CLI) | payer MEDICAID ==
[~2024-03-07] MED LIST changes: +APIX5TAB PO; +FLEC1TAB PO; +LOSA-533 PO; +METO25TA93 PO; +OMEP20TA PO; +RANO500T3 PO
[2024-03-07 14:53] LABS: Basophils # (auto) 0 10 ^3/uL (0-0.2); Basophils % (auto) 0.7 % (0.0-2.0); Eosinophils # (auto) 0.2 10 ^3/uL (0-0.8); Eosinophils % (auto) 2.9 % (0.0-7.0); Hemoglobin 13.8 g/dL (12.2-16.2); Lymphocytes # (auto) 1.9 10 ^3/uL (0.4-5.4); Lymphocytes % (auto) 34.5 % (10.0-50.0); Mean Corpuscular Hemoglobin 30.5 pg (28.0-32.0); Mean Corpuscular Hgb Conc. 33.6 g/dL (32.0-36.0); Mean Corpuscular Volume 90.9 fL (80.0-100.0); Monocytes # (auto) 0.5 10 ^3/uL (0-1.3); Monocytes % (auto) 9.1 % (0.0-12.0); Neutrophils % (auto) 52.8 % (37.0-80.0); Nucleated Red Blood Cells % 0.1 %; Platelet Count (auto) 290 10^3/uL (140-450); Red Blood Cells 4.51 10^6/uL (4.0-5.20); Red Cell Distribution Width 14.4 % (11.8-14.3); White Blood Cell 5.6 10^3/uL (4.4-10.8)
[2024-03-07 15:05] LABS: INR 1.16 (0.9-1.15); Partial Thromboplastin Time 30.2 SEC (24.5-34.5); Prothrombin Time 12.2 sec (9.3-11.8)
[2024-03-07 15:34] LABS: Alanine Aminotransferase 26 U/L (7-40); Albumin 4.5 g/dL (3.2-4.8); Alkaline Phosphatase 78 U/L (46-116); Anion Gap 6 (5-15); Aspartate Aminotransferase 16 U/L (13-40); BUN/Creatinine Ratio 16.5 (10.0-20.0); Bilirubin, Total 0.6 mg/dL (0.2-1.0); Blood Urea Nitrogen 16 mg/dL (9-23); Calcium 10.1 mg/dL (8.7-10.4); Carbon Dioxide 31 mmol/L (20-31); Chloride 103 mmol/L (98-107); Glucose 90 mg/dL (74-106); Potassium 4.7 mmol/L (3.5-5.1); Sodium 140 mmol/L (136-145)
[2024-03-07 15:35] LABS: Total Protein 7.4 g/dL (5.7-8.2)
== END | disposition home or self-care (01) ==
LOC: LAB 14:32
PROVIDERS: ATTEND Internal Medicine
DX: Z01.812 Encounter for preprocedural laboratory examination (principal)
CPT/HCPCS: 36415; 80053; 85025; 85610; 85730

== ENCOUNTER 2024-03-08 12:19 | Day surgery (SDC) | payer MEDICAID ==
[2024-03-08] VITALS (9 sets, daily range): BP systolic 134–156; BP diastolic 56–78; PULSE 56–64; RESP 12–14; O2SAT 93–97
[~2024-03-08] VITALS: Ht 172.7 cm; Wt 104.3 kg
[~2024-03-08 12:19] MED LIST changes: -PANT40TA2 PO; -SOLI5SUS PO
[2024-03-08] MEDS ORDERED: IODIXANOL 320MG/ML 100ML BTL IV ONE (12:20)
[2024-03-08] MEDS ORDERED: HEPARIN SODIUM (PORCINE) 5000 UNITS/ML 1ML VIAL ONE (14:14)
[2024-03-08] MEDS ORDERED: fentaNYL CITRATE 100 MCG/2 ML VL ONE (14:14)
[2024-03-08] MEDS ORDERED: VERAPAMIL 2.5MG/ML INJ 2ML VIAL IV ONE (14:14)
[2024-03-08] MEDS ORDERED: MIDAZOLAM HCL 2MG/2ML 2ml VIAL (1mg/ml) ONE (14:14)
[2024-03-08] MEDS ORDERED: ANGIOMAX 250 MG VIAL IV ONE (14:14)
[2024-03-08] MEDS ORDERED: SODIUM CHL 0.9% 0 ML ONE (14:15)
[2024-03-08] MEDS ORDERED: LIDOCAINE 2%HCL (LOCAL ANESTH.) INJ 20ML MDV ONE (14:15)
--- NOTE | 2024-03-08 15:14 | POSTOP ---
Post-Operative Note Post-Operative Note Preop Diagnosis CAD, angina. Postop Diagnosis: No significant CAD. Operation performed Left heart catheterization, bilateral cine coronary angiography. Left ventriculography. Anesthesia: Mac, Local Anesthesiologist: Local anesthetic Blood Loss(fluid mgmt) 5 cc Surgeon Nory Arce MD Implant No implant. Prior local anesthesia with 2% lidocaine to the right wrist and full informed consent obtained the patient was prepped and draped in usual fashion followed by insertion of a six Turkish catheter into the radial artery followed by a Valorie catheter cannulating both right coronary ostium and for ventriculography. Patient tolerated procedure well and no complications Hemodynamics aortic blood pressure was 130/70 end-diastolic pressure was 16 no gradient across the valve on pullback Coronary anatomy in the RCA is a large vessel it is normal in its proximal mid and distal segments. The PDA and posterolateral branches are normal. Left main is large and normal. Left anterior descending and diagonals are normal. The circumflex and obtuse marginal branches are normal. Ventriculography in the HOLLY projection shows an EF of 55% to 60%. Normal left ventricular end-diastolic pressure rest normal ejection fraction. No significant CAD. Recommendation that medical therapy is warranted . Continue risk factor modification. Complications & Mgmt No complications Date 03/08/24 Time 15:09 NORY ARCE Sr., MD Mar 08, 2024 15:14
--- NOTE | 2024-04-17 13:28 | DVHOP2 ---
Operative Report - 2 Report Details Date: 03/08/2024 Preop Diagnosis: CAD, angina. Postop Diagnosis: S/P LT heart catheterization Surgeon: Nory Arce MD Anesthesiologist: Local anesthetic Anesthesia: Mac, Local Implant: No implant. Prior local anesthesia with 2% lidocaine to the right wrist and full informed consent obtained the patient was prepped and draped in usual fashion followed by insertion of a six Bermudian catheter into the radial artery followed by a Valorie catheter cannulating both right coronary ostium and for ventriculography. Patient tolerated procedure well and no complications Hemodynamics aortic blood pressure was 130/70 end-diastolic pressure was 16 no gradient across the valve on pullback Coronary anatomy in the RCA is a large vessel it is normal in its proximal mid and distal segments. The PDA and posterolateral branches are normal. Left main is large and normal. Left anterior descending and diagonals are normal. The circumflex and obtuse marginal branches are normal. Ventriculography in the HOLLY projection shows an EF of 55% to 60%. Normal left ventricular end-diastolic pressure rest normal ejection fraction. No significant CAD. Recommendation that medical therapy is warranted . Continue risk factor modification. Consent: The patient was informed of the risks and benefits of the procedure. These include but are not limited to complications of anesthesia, postoperative infection, incomplete relief of symptoms, recurrence of symptoms, damage to blood vessels, nerves and tendons, deep venous thrombosis, pulmonary embolism a nd possible need for repeat surgery in the future. Complications: No complications Estimated Blood Loss: 5 cc Indications for Surgery: Chest pain Name of Procedure Performed Left heart catheterization, bilateral cine coronary angiography. Left ventriculography. Procedure Details Procedure Details: Preop Diagnosis CAD, angina. Postop Diagnosis: No significant CAD. Operation performed Left heart catheterization, bilateral cine coronary angiography. Left ventriculography. Anesthesia: Mac, Local Anesthesiologist: Local anesthetic Blood Loss(fluid mgmt) 5 cc Surgeon Nory Arce MD Implant No implant. Prior local anesthesia with 2% lidocaine to the right wrist and full informed consent obtained the patient was prepped and draped in usual fashion followed by insertion of a six Bermudian catheter into the radial artery followed by a Valorie catheter cannulating both right coronary ostium and for ventriculography. Patient tolerated procedure well and no complications Hemodynamics aortic blood pressure was 130/70 end-diastolic pressure was 16 no gradient across the valve on pullback Coronary anatomy in the RCA is a large vessel it is normal in its proximal mid and distal segments. The PDA and posterolateral branches are normal. Left main is large and normal. Left anterior descending and diagonals are normal. The circumflex and obtuse marginal branches are normal. Ventriculography in the HOLLY projection shows an EF of 55% to 60%. Normal left ventricular end-diastolic pressure rest normal ejection fraction. No significant CAD. Recommendation that medical therapy is warranted . Continue risk factor modification. Complications & Mgmt No complications Date 03/08/24 Time 15:09 Condition Good Disposition Home Date of Service: Mar 08, 2024 Billing Provider: NORY ARCE Sr., MD Cardiology Common Codes: [id number] INP/OBS CARE (High) NORY ARCE Sr., MD Apr 17, 2024 13:28
== END 2024-03-08 18:00 | disposition home or self-care (01) ==
LOC: CATH 12:19
PROVIDERS: ATTEND Internal Medicine
DX: R07.89 Other chest pain (principal); F32.A Depression, unspecified; F41.9 Anxiety disorder, unspecified; Z98.51 Tubal ligation status; Z82.49 Family history of ischemic heart disease and other diseases of the circulatory system; Z79.899 Other long term (current) drug therapy; Z95.5 Presence of coronary angioplasty implant and graft
CPT/HCPCS: 93458; C1887; C1894; J1644; J2250; J3010; Q9967; 99152